=== PATIENT | female | born 1970 | race Caucasian/White ===

== ENCOUNTER → 2020-12-14 01:22 | Outpatient (CLI) | payer OTHER, SELFPAY ==
[2020-12-14 18:55] LABS: SARS-CoV-2 RNA PCR Negative
== END ==
PROVIDERS: Visit Provider Obstetrics & Gynecology
DX: Z01.812 Encounter for preprocedural laboratory examination (principal); Z20.822 Contact with and (suspected) exposure to COVID-19
CPT/HCPCS: C9803; U0003; U0005

== ENCOUNTER 2020-12-14 13:27 | Outpatient (CLI) | payer OTHER, SELFPAY ==
[2020-12-14 14:05] LABS: Basophils Percent Auto 0.4 % (0.2-1.2); Eosinophils Absolute Auto 0.2 K/mm3 (0-0.3); Eosinophils Percent Auto 2.7 % (0-4.4); Hematocrit 43.4 % (37.0-47.0); Hemoglobin 13.6 g/dL (12.0-15.0); Immature Granulocyte Absolute 0.03 K/mm3 (0.00-0.031); Immature Granulocyte Percent A 0.4 % (0-0.5); Lymphocytes Percent Auto 35.9 % (18.3-44.2); Mean Corpuscular HGB Conc 31.3 g/dl (32-36); Mean Corpuscular Hemoglobin 27.3 pg (26-34); Mean Corpuscular Volume 87.1 fl (80-100); Mean Platelet Volume 9.9 fl (7.4-10.4); Monocytes Absolute Auto 0.5 K/mm3 (0.1-0.6); Monocytes Percent Auto 6.7 % (2.6-8.5); Neutrophils Absolute Auto 4.4 K/mm3 (1.3-6.7); Neutrophils Percent Auto 53.9 % (45.5-73.1); Platelet Count Result 313 k/mm3 (150-375); Red Blood Count 4.98 M/mm3 (4.2-5.4); Red Cell Distribution Width 13.4 % (11.5-14.5); White Blood Count 8.1 K/mm3 (4.5-10.0)
== END 2020-12-14 13:28 | disposition home or self-care (01) ==
LOC: ANHSURGERY 13:29
PROVIDERS: Visit Provider Obstetrics & Gynecology
DX: Z01.818 Encounter for other preprocedural examination (principal); D21.9 Benign neoplasm of connective and other soft tissue, unspecified
CPT/HCPCS: 36415; 85025; 86850; 86900; 86901

== ENCOUNTER 2020-12-17 06:08 | Day surgery (SDC) | payer OTHER, SELFPAY ==
[2020-12-14 08:38] VITALS: BMI 45.4
--- NOTE | 2020-12-14 12:58 | PM.IMHP ---
H&P: HPI History of Present Illness Date/Time: 12/14/20 12:58 50-year-old female 2 para 2 status post tubal ligation admitted for robotic total vaginectomy and bilateral salpingo-oophorectomy. She has a uterine prolapse as well as pain dyspareunia and an enlarged uterus. She opts for definitive therapy via hysterectomy. Risks and benefits reviewed including but not exclusive of , aspiration pneumonia, bleeding, transfusion, perforation under to bowel, bladder, ureters, or other internal organs with need for open laparotomy. She received the [employer] handout entitled hysterectomy as well as the de Kassy handout. She had all questions answered. She asked to proceed Chief Complaint: pelvic pain/ enlarged uterus / prolapse Review of Systems Review of Systems: All systems reviewed & are unremarkable except as noted in HPI and below PMFSH Family History Family History Father Patient's father is in good health Mother Cerebrovascular accident, Onset Age: 50 Patient's mother is Social History Social History Smoking status: Never smoker Alcohol intake: never Substance use: never Substance use type: does not use Spiritual care concerns: No Meds Home Medications and Allergies Home Medications Medication Instructions Recorded Confirmed Type No Home Medications 12/14/20 12/14/20 History Allergies Allergy/AdvReac Type Severity Reaction Status Date / Time iodine Allergy Mild Swelling Verified 12/14/20 08:37 shellfish derived Allergy Unknown Swelling Unverified 12/14/20 08:37 suture Allergy Other Verified 12/14/20 08:37 Exam Const: General: no acute distress Eyes: General: appearance normal, both eyes and all related structures Neck: Neck: supple and no JVD Thyroid: thyroid normal Resp: Effort & Inspection: normal respiratory effort Auscultation: clear to auscultation bilaterally Cardio: Rate: regular rate Rhythm: regular rhythm GI: Inspection: non-distended GI Palp: Yes Soft to palpation, No Tenderness to palpation present (GI) and No Guarding due to palpation present (GI) Auscultation: normal bowel sounds : General: Yes bladder normal to palpation External Female Exam: normal external appearance Speculum Exam - Vagina: normal appearance of the vagina Speculum Exam - Cervix: normal appearance of the cervix ( second-degree prolapse is noted) Bimanual exam- vagina & uterus: enlarged and Uterine tenderness Bimanual Exam- Adnexa, other: normal adnexae Skin: General skin exam: no rashes or lesions noted Extrem: General: normal to inspection and no edema Psych: Mental Status: mental status grossly normal Affect: normal affect Assessment and Plan Additional Plan impression: Pelvic pain / enlarged uterus / uterine prolapse Plan: Robotic total vaginal hysterectomy and bilateral salpingo-oophorectomy
[2020-12-17] VITALS (12 sets, daily range): BP systolic 118–145; BP diastolic 66–90; PULSE 72–105; RESP 15–20; TEMP 36.2–37.2; O2SAT 96–100; BMI 45.4
--- NOTE | 2020-12-17 06:00 | WPDHPUPDATE1 ---
History and Physical Update Update Date/Time: 12/17/20 06:00 History and Physical has been reviewed, including an updated exam of the patient. There are NO changes in the patient's condition. Risks, benefits, and alternatives have been discussed and questions answered. Patient agrees to proceed with procedure.
[2020-12-17] MEDS: ACETAMINOPHEN 500 MG TABLET 1000 MG PO (10:03)
[2020-12-17] MEDS: LACTATED RINGERS 1,000 ML 30 ML IV CONT ×2 (10:20→12:34)
--- NOTE | 2020-12-17 10:22 | WPDANESEPPF ---
Anes - Initial Pre Proc Eval Procedure: Operation Date: 12/17/20 11:30 Proposed Procedures p Robotic Assisted Total Vaginal Hysterectomy, Bilateral Salpingo Oophorectomy - Jacob Banerjee MD Date/Time: 12/17/20 10:22 Surgeon: Jacob Banerjee MD Pre Op Diagnosis: enlarge uterus, fibroids, pain, prolapse Patient Data Age: 50 Gender: F Height: 5 ft 4 in Weight: 120.2 kg Allergies Allergy/AdvReac Type Severity Reaction Status Date / Time iodine Allergy Mild Swelling Verified 12/17/20 10:01 shellfish derived Allergy Unknown Swelling Verified 12/17/20 10:01 suture Allergy Other Verified 12/17/20 10:01 Home Medications Medication Instructions Recorded Confirmed Type hydrocodone-acetaminophen 1 tablet PO Q4H PRN #30 tablet 12/17/20 Rx Patient hx anesthesia problems: none Family hx anesthesia problems: none PMF Family History Family History Father Patient's father is in good health Mother Cerebrovascular accident, Onset Age: 50 Patient's mother is Social History Social History Smoking status: Never smoker Alcohol intake: never Substance use: never Substance use type: does not use Living arrangements: with family Spiritual care concerns: No Anes - Eval Final PreProcedure Day of Procedure 12/17/20 10:22 Patient weight: morbidly obese Heart: regular rate and rhythm Lungs: clear to auscultation Airway: Mallampati scale class III Neurological: alert and oriented Last oral intake: >/= 8 hours ASA classification: III Emergent: no Anesthetic plan: proceed Anesthesia type and monitoring: general ETT and standard monitoring Informed Consent: The patient's anesthetic plan and its attendant risks and benefits were discussed with the patient/family/POA. Questions were solicited and answers provided to the satisfaction of the patient/family/POA.
[2020-12-17] MEDS: KETOROLAC 15 MG/ML VIAL (*BKC) IV PUSH (10:25)
[2020-12-17] MEDS: ceFAZolin 3 GM/D5W 100 ML 100 ML IVPB (11:00)
--- NOTE | 2020-12-17 12:19 | PM.PROC ---
Procedure Note - Detailed Date of procedure: 12/17/20 Pre-op diagnosis: enlarge uterus, fibroids, pain, prolapse Post-op diagnosis: same Procedure performed: Hysteroscopy Dilation & Curettage Description of procedure: The patient was taken to the OR and general anesthesia induced. She was prepped and draped in candy cane stirrups with support of the back and bilateral lower extremities. I/O catheterization performed of the bladder. [The above findings were noted.] Infiltration with 1% lidocaine at the 3 and 9 o'clock cervical positions was performed. A single tooth tenaculum was placed on the anterior lip of the cervix. The uterus sounded to [ ]cm. The cervix was dilated with sequential Kassy dilators. Hysteroscopy, using a normal saline medium, was performed and showed the above findings. Sharp uterine curettage was then performed and tissue placed on Telfa. The tenaculum was removed and hemostasis was observed. The patient tolerated the procedure well. Sponge, lap, and needle counts were correct. The patient had SCD's on throughout the case for VTE prophylaxis. The patient was taken to the recovery room in stable condition. Anesthesia: GETA Surgeon: Jacob Banerjee MD Postop diagnosis: Pelvic pain/prolapse Procedure: Robotic total vaginal hysterectomy and bilateral salpingo-oophorectomy. Anesthesia: General endotracheal EBL: 100cc Findings: Mildly enlarged uterus. Sound adhesions from the ovary to the right pelvic sidewall. Complications: None Description of procedure: The patient was prepped and draped in the normal sterile fashion and placed in the dorsal lithotomy position. Under excellent general endotracheal anesthesia weighted speculum placed in posterior fornix vagina. Anterior lip of the cervix grasped with single-tooth tenaculum and the uterus sounded to 10cm. Serial dilatation with fragmented dilators performed followed passes the 8. NIKIA and 3. Cold cup. Next 16 Kiswahili catheter was placed in the bladder to drain clear fluid. The weighted speculum was removed and the gloves were changed. Supraumbilical incision made the Veress needle passed in the abdomen. The abdomen filled with CO2 gas [id number]. The 8mm trocar advanced in the abdomen in the downside visualized without injury seen. The patient placed in Trendelenburg and right and left lateral quadrant incision made. The 8mm trocars advanced under direct visualization assuring no injury. The right upper quadrant incision made in the 10mm trocar advanced under direct visualization assuring no injury. The robot was docked. Attention was turned to the console. The left round ligament was grasped, burned, cut a bladder flap was formed anteriorly by sharply dissecting the perineum and reflecting the bladder caudally to the opposite round ligament which was clamped, burned, cut. The right infundibulopelvic structure was skeletonized and clamped, burned, cut and brought to the level of the previously cut round ligament. Left ovary was noted to be attached to the ovarian fossa and this was sharply dissected. Once this was clear the infundibulopelvic structure on the left was skeletonized. This was clamped, burned, cut and brought to the level of the previously cut round ligament. Next the cardinal and broad ligaments were serially skeletonized and clamped, burned, cut and brought down to the level of the uterine vessels on left. These were large and very tortuous. Each was individually clamped, burned, cut. In like fashion the cardinal broad ligaments were clamped burned and cut and brought down lateral edge of the uterus and cervix until the uterine vessels on the right could be seen. These were individually clamped, burned, cut. Next the colpotomy incision was made in the cervix uterus ovaries and tubes removed through the vagina. The vagina was closed with continuous running 0V lock from lateral edge to lateral edge and back to the midline. Irrigation undertaken until jt
[2020-12-17] MEDS: fentaNYL CITRATE INJ (*CRX) 100 MCG/2 ML VIAL 25 MCG IV PUSH ×5 (12:49→13:33)
--- NOTE | 2020-12-17 13:53 | SUR.PHASEI ---
1315- pt with low o2 sats on roomair. nasal cannula placed on pt. sleeping at present.
--- NOTE | 2020-12-17 14:41 | ADMGEN ---
This patient, Janine Rodriguez, was admitted to OB 2nd Floor Room 284-00. Patient/family oriented to hospital policies and general routines including ID bracelet, bed and alarms, visiting hours, pain management, procedures, bathroom and other care routines, personal items, smoking policy, room service/diet, and visiting hours. Information on how to activate the Rapid Response Team has been discussed. Patient/Family are encouraged to report perceived risks to care and to ask questions if they do not understand what they are told or what they should do.
[2020-12-17] MEDS: MORPHINE SULFATE (*CRX) 4 MG/ML INJ IV PUSH ×2 (14:59→22:11)
[2020-12-17] MEDS: DEXTROSE 5%/LACTATED RINGERS 1,000 ML 125 ML IV CONT ×2 (15:00→22:45)
[2020-12-17] MEDS: IBUPROFEN 600 MG TABLET PO (17:21)
[2020-12-17] MEDS: DOCUSATE SODIUM 100 MG CAPSULE PO (17:21)
[2020-12-17] MEDS: HYDROcodone/acetaminophen (*CRX) 10-325 MG TABLET 1 TAB PO (19:14)
[2020-12-17] MEDS: ESTRADIOL 7 DAY 0.05 MG PATCH TRANSDERM (19:59)
[2020-12-17] MEDS: ONDANSETRON INJ 4 MG/2 ML VIAL IV PUSH (20:54)
[2020-12-18] VITALS: BP 129/71; PULSE 87; RESP 16; TEMP 36.9; O2SAT 97
[2020-12-18] MEDS: KETOROLAC 30 MG/ML VIAL (*BKC) IV PUSH (00:37)
[2020-12-18 03:45] VITALS: BP 122/62; PULSE 93; RESP 16; TEMP 36.8; O2SAT 98
[2020-12-18] MEDS: HYDROcodone/acetaminophen (*CRX) 5-325 MG TABLET 1 TAB PO ×2 (05:45→09:19)
[2020-12-18 05:58] LABS: Basophils Percent Auto 0.1 % (0.2-1.2); Hematocrit 36.3 % (37.0-47.0); Hemoglobin 11.6 g/dL (12.0-15.0); Immature Granulocyte Absolute 0.05 K/mm3 (0.00-0.031); Immature Granulocyte Percent A 0.4 % (0-0.5); Lymphocytes Absolute Auto 1.63 K/mm3 (0.9-3.2); Lymphocytes Percent Auto 14.1 % (18.3-44.2); Mean Corpuscular Hemoglobin 26.9 pg (26-34); Mean Platelet Volume 9.9 fl (7.4-10.4); Monocytes Absolute Auto 0.6 K/mm3 (0.1-0.6); Neutrophils Absolute Auto 9.3 K/mm3 (1.3-6.7); Neutrophils Percent Auto 80.4 % (45.5-73.1); Platelet Count Result 322 k/mm3 (150-375); Red Blood Count 4.32 M/mm3 (4.2-5.4); White Blood Count 11.5 K/mm3 (4.5-10.0)
[2020-12-18 06:40] VITALS: BP 133/76; PULSE 94; RESP 20; TEMP 36.5
--- NOTE | 2020-12-18 07:56 | PM.DS ---
DS: Admitting Diagnosis Admitting Diagnosis Admitting Diagnosis: pelvic organ prolapse dyspareunia enlarged uterus DS: Summary Hospital Course Hospital Course: Janine Rodriguez was admitted after robotic assisted total laparoscopic hysterectomy and bilateral salpingectomy for pelvic organ prolapse, dyspareunia and enlarged uterus. The above procedure was performed with no complications. She is doing well post op. She states her pain is well controlled with PO medications. She reports minimal bleeding. She is ambulating up to the chair. Her melton catheter was removed. She is tolerating PO without N/V. She reports passing flatus. Status at Discharge Overall status at discharge: patient is progressing back to baseline Time Spent with Patient Time attestation: Total time spent providing and/or coordinating discharge services: Time spent: Less than 30 minutes Exam Const: General: comfortable and no acute distress Limitations: no limitations Resp: Effort & Inspection: normal respiratory effort Auscultation: clear to auscultation bilaterally Cardio: Rate: regular rate Rhythm: regular rhythm GI: Inspection: non-distended GI Palp: Yes Soft to palpation, Yes Tenderness to palpation present (GI) (milder tenderness to deep palpation) and No Guarding due to palpation present (GI) Auscultation: normal bowel sounds Other: incisions C/D/I covered with dermabond Urinary Catheter: Urinary Catheter: urine clear Skin: General skin exam: normal color Extrem: General: normal to inspection Psych: Mental Status: mental status grossly normal Affect: normal affect DS: Data Data Completed and Pending Pending studies at discharge: Pending at discharge 12/17/20 12:05 Surgical [PTH] Routine Labs on day of discharge: Labs from last 24 hours 12/18/20 05:37 WBC 11.5 H RBC 4.32 Hgb 11.6 L Hct 36.3 L MCV 84.0 MCH 26.9 MCHC 32.0 RDW 13.0 Plt Count 322 MPV 9.9 Immature Gran % (Auto) 0.4 Neut % (Auto) 80.4 H Lymph % (Auto) 14.1 L Payette % (Auto) 5.0 Eos % (Auto) 0.0 Baso % (Auto) 0.1 L Lymph # (Auto) 1.63 Payette # (Auto) 0.6 Eos # (Auto) 0.0 Baso # (Auto) 0.0 Abs Immat Gran (auto) 0.05 H Absolute Neuts (auto) 9.3 H Absolute Nucleated RBC 0.0 Nucleated RBC % 0.0 Discharge Plan Discharge Patient Disposition: Home, Self-Care Stand Alone Forms: General Discharge Instructions Follow-up/Referrals: Jacob Banerjee MD [Physician] - Discharge Medications: New hydrocodone-acetaminophen 5-325 mg tablet 1 tablet PO Q4H PRN (Reason: pain) Qty: 30 RF: 0
[2020-12-18] MEDS: IBUPROFEN 600 MG TABLET PO (09:18)
[2020-12-18] MEDS: DOCUSATE SODIUM 100 MG CAPSULE PO (09:18)
[2020-12-18] MEDS: ENOXAPARIN 40 MG/0.4 ML SYRINGE SUB-Q (09:20)
--- NOTE | 2020-12-18 10:10 | WPDANESPN ---
Anes - Prog Note Post-Op Date/Time: 12/18/20 10:10 Cardiovascular status: normal Respiratory status: normal Airway patency: baseline Mental status: baseline Post-Op hydration status: normal Vital Signs: Last Vital Signs Temp 36.5 C 12/18/20 06:40 Pulse 94 12/18/20 06:40 Resp 20 12/18/20 06:40 BP 133/76 12/18/20 06:40 Pulse Ox 98 12/18/20 03:45 Pain Score (VAS): 210 I/O: Intake & Output 12/17/20 12/18/20 12/18/20 23:59 07:59 15:59 Intake Total 1200 864 Output Total 1550 2200 Balance -350 -1336 Laboratory Tests 12/18/20 05:37 12/18/20 05:37 WBC 11.5 H RBC 4.32 Hgb 11.6 L Hct 36.3 L MCV 84.0 MCH 26.9 MCHC 32.0 RDW 13.0 Plt Count 322 MPV 9.9 Immature Gran % (Auto) 0.4 Neut % (Auto) 80.4 H Lymph % (Auto) 14.1 L Forrest % (Auto) 5.0 Eos % (Auto) 0.0 Baso % (Auto) 0.1 L Lymph # (Auto) 1.63 Forrest # (Auto) 0.6 Eos # (Auto) 0.0 Baso # (Auto) 0.0 Abs Immat Gran (auto) 0.05 H Absolute Neuts (auto) 9.3 H Absolute Nucleated RBC 0.0 Nucleated RBC % 0.0 Post-procedural complaints: none Patient Feedback: Patient satisfied with anesthetic care.
== END 2020-12-18 11:24 | disposition home or self-care (01) ==
LOC: ANHSURGERY 09:31 → ANHOB2 14:13
PROVIDERS: Visit Provider Obstetrics & Gynecology
PROC: (CPT 58552; principal; 2020-12-17 11:30)
DX: D25.1 Intramural leiomyoma of uterus (principal); D25.2 Subserosal leiomyoma of uterus; N83.8 Other noninflammatory disorders of ovary, fallopian tube and broad ligament; N73.6 Female pelvic peritoneal adhesions (postinfective); N81.4 Uterovaginal prolapse, unspecified; N94.10 Unspecified dyspareunia
CPT/HCPCS: 58552; S2900; 36415; 85025; 86850; 86900; 86901; 88307; 99199; A9270; C9803; J0690; J1100; J1170; J1650; J1885; J2250; J2270; J2405; J2704; J2710; J3010; J7030; J7120; J7121; U0003; U0005